=== PATIENT | female | born 1935 | race Caucasian/White ===

== ENCOUNTER → 2021-11-18 | Outpatient (CLI) | payer MEDICARE ==
[~2021-11-18] MED LIST: AMARYL 2MG TABLE2 MG PO; COLCRYS0.6 MG PO; ECOTRIN81 MG PO; IMDUR ER TAB 3030 MG PO; LOPRESSOR 25 MG25 MG PO; NEURONTIN 300300 MG PO; NIACIN SR 250250 MG PO; SYNTHROID75 MCG PO; SYNTHROID88 MCG PO; ZYLOPRIM 100 M100 MG PO
== END ==
LOC: HEART CORB 09:04
DX: R94.31 Abnormal electrocardiogram [ECG] [EKG] (principal); R07.89 Other chest pain; I25.10 Atherosclerotic heart disease of native coronary artery without angina pectoris; R60.0 Localized edema; R06.02 Shortness of breath; R94.39 Abnormal result of other cardiovascular function study; I08.3 Combined rheumatic disorders of mitral, aortic and tricuspid valves
CPT/HCPCS: 78452; 93306; A9502; J2785